=== PATIENT | female | born 1970 | race Caucasian/White ===

== ENCOUNTER → 2019-08-22 10:28 | Outpatient (CLI) | payer BC, SELFPAY ==
--- NOTE | 2019-08-22 10:38 | US_ITS ---
PROCEDURE: US TRANSVAGINAL CLINICAL INDICATION: NEOPLASM OF UNCERTAIN BEHAVIOR OF UTERUS possibly abnormal appearing left ovary done on recent CT scan at [facility] COMPARISON: No exams were available for comparison FINDINGS: The uterus is normal in size. There is a somewhat heterogenic appearing lesion within the fundus of the uterus measuring 4.5 x 5.4 by 4.8 cm and this likely is a fibroid. However it is somewhat more heterogenic thin typically seen for fibroids and endometrial carcinoma with an outside possibility and consider follow-up CT scan of the of abdomen and pelvis with IV contrast for additional evaluation. The left ovary is normal in size with a dominant cyst measuring 1.7 x 1 point by 1.5 cm with partial septation. The right ovary is normal in size showing a small follicular cyst. The endometrial echo shows homogeneous echogenicity measuring 1.1 there is no cul-de-sac fluid. Cm. IMPRESSION: Probable uterine fibroid but appearing rather heterogenic and consider follow-up CT scan as indicated above Dictated by: Dr. Rocky Floyd MD 08/22/2019 11:[address] Rocky Floyd MD in [place] 08/22/2019 11:40
[2019-08-25 07:47] LABS: H. pylori Breath Test Negative (Negative)
== END ==
PROVIDERS: PCP Nurse Practitioner; Visit Provider Nurse Practitioner
DX: D39.0 Neoplasm of uncertain behavior of uterus (principal); R76.8 Other specified abnormal immunological findings in serum
CPT/HCPCS: 76830; 83013

== ENCOUNTER → 2023-07-10 23:20 | Outpatient (CLI) | payer BC, SELFPAY ==
[2023-07-10 18:55] LABS: Coronavirus 19, PCR Not Detected (NotDetected); Influenza A, PCR Not Detected (NotDetected); Influenza B, PCR Not Detected (NotDetected)
[2023-07-10 19:27] LABS: Basophils % 0.4 % (0.1-2.0); Eosinophils # 0.4 K/mm3 (0.0-0.4); Eosinophils % 4.5 % (0.1-12.0); Hematocrit 37.3 % (37.0-47.0); Hemoglobin 13.1 g/dL (12.2-16.2); Lymphocytes % 36.4 % (10-50); Mean Corpuscular HGB Conc 35.1 g/dL (31.8-35.4); Mean Corpuscular Hemoglobin 31.8 pg (27.0-31.2); Mean Corpuscular Volume 90.6 fl (81-99); Mean Platelet Volume 8.8 fl (7.4-10.4); Monocytes # 0.4 K/mm3 (0.1-1.0); Monocytes % 4.7 % (1.7-9.3); Neutrophils # 4.5 K/mm3 (1.8-7.8); Platelet Count 258 K/mm3 (142-424); Red Blood Count 4.11 M/mm3 (4.20-5.40); Red Cell Distribution Width 13.6 % (11.5-17.5); White Blood Count 8.3 K/mm3 (4.8-10.8)
[2023-07-10 22:12] LABS: Anion Gap 16.8 mEq/L (5-15); Blood Urea Nitrogen 9 mg/dl (7-17); Calcium 9.3 mg/dl (8.4-10.2); Carbon Dioxide 23 mmol/L (22.0-30.0); Chloride 105 mmol/L (98-107); Estimated Glomerular Filt Rate 88 ml/min (>60); GFR (African American) 107 ML/MIN (>60); Glucose 95 mg/dl (74-100); Potassium 3.8 mmoL/L (3.5-5.1); Sodium 141 mmol/L (136-145)
== END ==
PROVIDERS: PCP Nurse Practitioner; Visit Provider Nurse Practitioner
DX: J06.9 Acute upper respiratory infection, unspecified (principal)
CPT/HCPCS: 80048; 85025; 87636

== ENCOUNTER → 2023-07-25 23:00 | Outpatient (CLI) | payer BC, SELFPAY ==
[2023-07-25 18:45] LABS: Monoscreen (Rapid) Negative (Negative)
[2023-07-25 18:51] LABS: Basophils % 0.5 % (0.1-2.0); Eosinophils # 0.2 K/mm3 (0.0-0.4); Eosinophils % 2.6 % (0.1-12.0); Hematocrit 37.7 % (37.0-47.0); Hemoglobin 13.1 g/dL (12.2-16.2); Lymphocytes % 38.9 % (10-50); Mean Corpuscular HGB Conc 34.7 g/dL (31.8-35.4); Mean Corpuscular Hemoglobin 30.9 pg (27.0-31.2); Mean Corpuscular Volume 89.2 fl (81-99); Mean Platelet Volume 8.6 fl (7.4-10.4); Monocytes # 0.3 K/mm3 (0.1-1.0); Monocytes % 4.3 % (1.7-9.3); Neutrophils # 4.2 K/mm3 (1.8-7.8); Neutrophils % 53.8 % (37.0-80.0); Platelet Count 271 K/mm3 (142-424); Red Blood Count 4.22 M/mm3 (4.20-5.40); Red Cell Distribution Width 13.4 % (11.5-17.5); White Blood Count 7.8 K/mm3 (4.8-10.8)
[2023-07-27 10:17] LABS: Antistreptolysin O Ab 24.6 IU/mL (0.0-200.0)
== END ==
PROVIDERS: PCP Nurse Practitioner; Visit Provider Nurse Practitioner
DX: R59.0 Localized enlarged lymph nodes (principal)
CPT/HCPCS: 85025; 86060; 86318

== ENCOUNTER → 2023-08-22 08:42 | Outpatient (CLI) | payer BC, SELFPAY ==
[2023-08-22 18:53] LABS: Adenovirus,PCR Not Detected (NotDetected); Coronavirus 229E Not Detected (NotDetected); Coronavirus NL63 Not Detected (NotDetected); Coronavirus OC43 Not Detected (NotDetected); Coronovirus HKU1,PCR Not Detected (NotDetected); Human Metapneumovirus Not Detected (NotDetected); Influenza A, PCR Not Detected (NotDetected); Influenza AH1, 2009 Not Detected (NotDetected); Influenza AH1, PCR Not Detected (NotDetected); Influenza AH3,PCR Not Detected (NotDetected); Influenza B, PCR Not Detected (NotDetected); Parainfluenza 1, PCR Not Detected (NotDetected); Parainfluenza 2, PCR Not Detected (NotDetected); Parainfluenza 3, PCR Not Detected (NotDetected); Parainfluenza 4, PCR Not Detected (NotDetected); Respiratory Syncytial Virus Not Detected (NotDetected); Rhinovirus/Enterovirus Not Detected (NotDetected)
[2023-08-23 00:09] LABS: Coronavirus 19, PCR Detected (NotDetected)
== END ==
LOC: LAB.DROPOF 08-23 08:42
PROVIDERS: PCP Nurse Practitioner; Visit Provider Nurse Practitioner
DX: J06.9 Acute upper respiratory infection, unspecified (principal); U07.1 COVID-19; R09.89 Other specified symptoms and signs involving the circulatory and respiratory systems; R50.9 Fever, unspecified; R51.9 Headache, unspecified; R53.81 Other malaise
CPT/HCPCS: 87581; 87632; 87635; 87798

== ENCOUNTER 2023-11-28 07:00 | Day surgery (SDC) | payer BC, SELFPAY ==
[2023-11-26 12:56] VITALS: BMI 25.7
[2023-11-28] MEDS: LACTATED RINGERS 1000ML 1,000 ML 25 ML IV (06:20)
--- NOTE | 2023-11-28 06:54 | [facility].SCOPE ---
Procedure: Date: 11/28/23 Patient Date of :: 1970 Procedure Performed:: Colonoscopy with polypectomy Indications:: Left lower quadrant abdominal pain Performing Provider:: Ernst House MD Referring Provider:: Dr. Henry Sedation:: Monitored anesthesia care Procedure:: After informed consent was obtained the patient was taken to the endoscopy suite. Sedation ensued after the patient was transferred to the left lateral decubitus position. Pulse, blood pressure, and oxygen saturation were monitored throughout the procedure. Digital rectal exam revealed no significant abnormality. The colonoscope was placed in position. The entire colon was evaluated. The colonoscope was carefully removed and the patient was transferred to recovery in stable condition. Please see findings and specimens below for detail. Findings:: Bowel preparation fair Fairly profound spasticity/lack of relaxation Significant sigmoid tortuosity Scattered sigmoid diverticulosis 7 mm sessile cecal polyp Specimens:: 7 mm sessile cecal polyp (cold snare) Recommendations:: Timing of repeat colonoscopy is pending pathology but will likely be between 2-3 years secondary to spasticity/lack of relaxation and tortuosity. Gastroenterology consultation warranted for evaluation of persistent/intermittent left lower quadrant abdominal pain without definitive radiographic or endoscopic evidence of anomaly. Complications:: No immediate Estimated blood obtained (mL): 1 Colonoscopy Component Colonoscopy Component Was a colonoscopy performed during today's procedure?: Yes Recommended follow up colonoscopy of at least 10 years?: No If no, follow up colonoscopy recommended in ___ years?: (See above) Reason for not recommending >/= 10 yr follow-up interval?: (See above)
[2023-11-28 07:01] VITALS: BP 119/60; PULSE 82; RESP 18; TEMP 36.7; O2SAT 98
--- NOTE | 2023-11-28 07:12 | P.PNANES_ITS ---
[facility] Disclaimer: The information contained in this section may have been updated after the patient was seen, as this information can be updated by other users. 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 LLQ abdominal pain Irregular heart beat Asthma Thickened endometrium Uterine mass Surgical History History of partial hysterectomy History of cholecystectomy Family History Other Coronary artery disease Diabetes Social History Smoking Status: Former smoker alcohol intake: never substance use type: denies use current occupational status: employed Travel in the last 8 weeks: None [facility] Anesthesia Checklist Patient Identification Patient Identification: Arm Band and Verbal (Name & ) Structural Data Admitted From: Home Planned Operative Procedure/s: Colonoscopy Consent for Planned Operative Procedure(s) Verified: Yes NPO Status Verified Time NPO: 00:00 Additional verifications Anesthesia Reactions: No Airway Assessment Mallampati Score:: Class I C-Spine Mobility Assessed: Yes TMJ Mobility Assessed: Yes Dentition: Partials Neurological Assessment Level of Consciousness: Awake Hx Seizures: No Numbness or tingling in extremities: No Anesthesia Plan Anesthesia Risk discussed: Yes Anesthesia Plan: Verified ASA Class: II Anesthesia Type: MAC
[2023-11-28 07:31] VITALS: O2SAT 98
[2023-11-28 08:14] VITALS: BP 90/51; PULSE 90; RESP 14; TEMP 36.5; O2SAT 97
[2023-11-28 08:24] VITALS: BP 99/63; PULSE 94; RESP 17; O2SAT 99
[2023-11-28] MEDS: ACETAMINOPHEN 325MG TAB 650 MG (08:30)
[2023-11-28 08:34] VITALS: BP 109/65; PULSE 94; RESP 18; O2SAT 99
[2023-11-28 08:44] VITALS: BP 114/73; PULSE 95; RESP 18; O2SAT 97
== END 2023-11-28 08:55 | disposition home or self-care (01) ==
PROVIDERS: PCP Family Medicine; Visit Provider Surgery
PROC: 0DJD8ZZ Inspection of Lower Intestinal Tract, Via Natural or Artificial Opening Endoscopic (ICD-10-PCS; CPT 45378; principal; 2023-11-28 07:30)
DX: R10.32 Left lower quadrant pain (principal); K56.2 Volvulus; D12.0 Benign neoplasm of cecum
CPT/HCPCS: 45385

== ENCOUNTER 2024-11-24 15:47 | Outpatient (CLI) | payer SELFPAY | END 2024-11-24 23:59 | disposition home or self-care (01) | LOC: LAB.DROPOF 11-27 09:19 | PROVIDERS: PCP Nurse Practitioner; Visit Provider Nurse Practitioner | DX: N39.0 Urinary tract infection, site not specified (principal) | CPT/HCPCS: 87086; 87088; 87186 ==